=== PATIENT | female | born 1935 | race Caucasian/White ===

== ENCOUNTER 2017-10-04 12:51 | Emergency (ER) | payer BC, MEDICARE ==
[~2017-10-04] VITALS: Ht 172.7 cm; Wt 76.0 kg
[~2017-10-04 12:51] MED LIST: ASPI81TA45 PO; ATOR10TA PO; GLUCTAB PO; LOSA25TA31 PO; SITA100 PO; TAB-TAB PO
[2017-10-04 12:58] VITALS: BP 124/74; PULSE 90; RESP 20; TEMP 97.4; O2SAT 99
[2017-10-04] MEDS ORDERED: traMADol HCL 50 MG TAB PO ONE (14:45)
--- NOTE | 2017-10-04 15:14 | RADRPT ---
EXAM DATE: 10/04/2017 3:08 PM EDT AGE/SEX: 82 years / Female INDICATIONS: Left knee pain, denies injury CLINICAL DATA: This is the patient's initial encounter. Patient reports that signs and symptoms have been present for 2 days and indicates a pain score of 6/10. MEDICAL/SURGICAL HISTORY: Arthritis. None. COMPARISON: No prior exams available for comparison. FINDINGS: Bony structures are intact and in normal alignment. Joints are intact without dislocation or signifi cant arthropathy. Osseous density is normal. Soft tissues are unremarkable. No radiopaque foreign bodies seen. CONCLUSION: No acute fracture. Mild to moderate osteoarthritis. Chondrocalcinosis also noted. Electronically signed by: Zhao Isabel MD 10/04/2017 3:13 PM EDT
[2017-10-04] MEDS ORDERED: TRAM50TA PO (15:35)
[2017-10-04] MEDS ORDERED: VOLT1GEL16 TOPICAL (15:35)
--- NOTE | 2017-10-04 15:36 | PD ---
HPI Chief Complaint: Pain: Acute or Chronic Time Seen by Provider: 14:28 Travel History International Travel<30 days: No Contact w/Intl Traveler<30days: No Traveled to known affect area: No History of Present Illness HPI Patient is a 82 year old female who comes in complaining of left knee pain. She says the pain started yesterday. She has tried some icy hot cream without relief of her symptoms. She has had a knee replacement on the right. She denies any injury to the knee. She denies fever or chills. She denies redness to the knee. She says it has been swollen. Movement makes the pain worse. Severity is moderate. PFSH Past Medical History Arthritis: Yes Blood Disorders: No Heart Rhythm Problems: Yes (UTERINE) Cancer: Yes (hx of endometrium cancer) Cardiovascular Problems: Yes High Cholesterol: Yes Diabetes: Yes Diminished Hearing: No Endocrine: Yes Genitourinary: No Hypertension: Yes Immune Disorder: No Musculoskeletal: Yes Neurologic: No Psychiatric: No Reproductive: No Respiratory: No ?: Not Menopausal: Yes Past Surgical History Abdominal Surgery: Yes (gallbladder appendectomy) Appendectomy: Yes Cholecystectomy: Yes Gynecologic Surgery: Yes (HYSTERECTOMY) Hysterectomy: Yes Joint Replacement: Yes (RT KNEE REPLACEMENT AND TENDON) Social History Alcohol Use: Yes (1 X PER MONTH) Tobacco Use: No Substance Use: No Allergies-Medications (Allergen,Severity, Reaction): Coded Allergies: diazepam (Unverified Allergy, Severe, 11/25/16) pt feels like her head is going to explode and then n/v oxycodone (Unverified Allergy, Severe, n/v, 11/25/16) acetaminophen (Unverified Allergy, Unknown, 11/25/16) right side of my body convulses propoxyphene (Unverified Allergy, Unknown, 11/25/16) right side of my body convulses Reported Meds & Prescriptions Reported Meds & Active Scripts Active Reported Aspirin 81 mg EC Lo-Dose (Aspirin) 81 Mg Tab 81 Mg PO DAILY Atorvastatin 10 mg (Atorvastatin Calcium) 10 Mg Tab 1 Tab PO DAILY Cozaar (Losartan Potassium) 25 Mg Tab 12.5 Mg PO DAILY Januvia (Sitagliptin Phosphate) 100 Mg Tab 100 Mg PO DAILY Multivitamin (Multivitamins) 1 Tab Tab 1 Tab PO DAILY Glucophage (Metformin HCl) 500 Mg Tab 500 Mg PO BID Review of Systems General / Constitutional: No: Fever, Chills Eyes: No: Blurred Vision HENT: No: Headaches, Lightheadedness Cardiovascular: No: Chest Pain or Discomfort Respiratory: No: Shortness of Breath Gastrointestinal: No: Nausea, Vomiting Musculoskeletal: Positive: Edema, Pain Skin: No Rash, No Change in Pigmentation Neurologic: No: Weakness, Dizziness Physical Exam Narrative GENERAL: Awake and alert, in no acute distress. SKIN: Focused skin assessment warm/dry. HEAD: Atraumatic. Normocephalic. EYES: Pupils equal and round. No scleral icterus. ENT: Mucous membranes pink and moist. CARDIOVASCULAR: Regular rate and rhythm. No murmur appreciated. RESPIRATORY: No accessory muscle use. Clear to auscultation. Breath sounds equal bilaterally. MUSCULOSKELETAL: No obvious deformities. No clubbing. No cyanosis. Mild edema of the right knee. Pain with flexion of the knee. No erythema or warmth of the joint. Pedal pulses intact. NEUROLOGICAL: Awake and alert. No obvious cranial nerve deficits. Motor grossly within normal limits. Normal speech. Data Data Last Documented VS Vital Signs Date Time Temp Pulse Resp B/P (MAP) Pulse Ox O2 Delivery O2 Flow Rate FiO2 10/04/17 12:58 97.4 90 20 124/74 (91) 99 Orders Orders Knee, Complete (4vws) (10/04/17 ) Tramadol (Ultram) (10/04/17 14:45) Ab Bandage (10/04/17 15:27) MDM Medical Decision Making Medical Screen Exam Complete: Yes Emergency Medical Condition: Yes Medical Record Reviewed: Yes Differential Diagnosis arthritis vs knee strain vs fracture Narrative Course Patient is an 82-year-old female who comes in complaining of left knee pain. Exam shows pain with flexion of the knee. Patient given tramadol. X-ray of the knee performed shows arthritis. Patient given prescriptions for Voltaren cream as well as tramadol. Advised follow-up with orthopedics. Advised to return to the ED as needed for any worsening symptoms. Diagnosis Primary Impression: Knee pain, left Qualified Codes: M25.562 - Pain in left knee Patient Instructions: General Instructions, Knee Pain (ED) Additional Instructions: Apply Voltaren gel to help with pain. Take pain medicine as needed. Follow-up with orthopedics. Return to the ED as needed for any worsening symptoms. Scripts Tramadol (Tramadol) 50 Mg Tab 50 MG PO Q6H Y for PAIN, #7 TAB 0 Refills Prov: Allison Odell MD 10/04/17 Diclofenac Sodium (Voltaren) 1 % Gel..gram. 4 G TOPICAL QID Y for PAIN 1 TO 10 AND/OR AGITATION for 7 Days Prov: Allison Odell MD 10/04/17 Disposition: 01 DISCHARGE HOME Condition: Stable Allison Odell MD Oct 04, 2017 15:36
== END 2017-10-04 15:46 | disposition home or self-care (01) ==
LOC: NEPD 12:51
DX: M25.562 Pain in left knee (principal); M19.90 Unspecified osteoarthritis, unspecified site; E11.9 Type 2 diabetes mellitus without complications; I10 Essential (primary) hypertension; Z79.84 Long term (current) use of oral hypoglycemic drugs
CPT/HCPCS: 73564; 99283